=== PATIENT | female | born 1975 | race Caucasian/White ===

== ENCOUNTER 2021-03-17 15:50 | Emergency (ER) | payer OTHER ==
[~2021-03-17] VITALS: Ht 154.9 cm; Wt 79.4 kg
[2021-03-17] MEDS ORDERED: VITAMIN B122500 MCG PO (16:02)
[2021-03-17] MEDS ORDERED: VASOTEC10 MG PO (16:03)
[2021-03-17] MEDS ORDERED: ZOLOFT100 MG PO (16:03)
[2021-03-17] MEDS ORDERED: XANAX XR0.5 MG PO (16:03)
[2021-03-17] MEDS ORDERED: LAMICTAL100 M1 PO (16:04)
[2021-03-17] MEDS ORDERED: METFORMIN HCL500 M3 PO (16:04)
[2021-03-17] MEDS ORDERED: MEDI-MECLIZINE25 MG PO (19:22)
== END 2021-03-17 19:32 | disposition home or self-care (01) ==
LOC: ER 15:50
DX: R42 Dizziness and giddiness (principal); R51.9 Headache, unspecified; R19.7 Diarrhea, unspecified

== ENCOUNTER 2021-10-19 10:57 | Emergency (ER) | payer OTHER ==
[~2021-10-19] VITALS: Ht 154.9 cm; Wt 79.4 kg
[~2021-10-19 10:57] MED LIST: LAMICTAL100 M1 PO; MEDI-MECLIZINE25 MG PO; METFORMIN HCL500 M3 PO; VASOTEC10 MG PO; VITAMIN B122500 MCG PO; XANAX XR0.5 MG PO; ZOLOFT100 MG PO
[2021-10-19] MEDS ORDERED: HIBICLENS118 ML TOP (14:01)
[2021-10-19] MEDS ORDERED: MUPIROCIN1 G1 TOP (14:01)
[2021-10-19] MEDS ORDERED: DOXYCYCLINE HY100 M2 PO (14:01)
[2021-10-19] MEDS ORDERED: KETO10TA2 PO (14:04)
== END 2021-10-19 14:08 | disposition home or self-care (01) ==
LOC: ER 10:57
DX: L02.415 Cutaneous abscess of right lower limb (principal)